=== PATIENT | male | born 1975 | race Caucasian/White ===

== ENCOUNTER 2017-03-25 09:26 | Inpatient (IN) | payer MEDICAID, SELFPAY ==
[2017-03-25] VITALS (11 sets, daily range): BP systolic 130–164; BP diastolic 83–108; PULSE 69–99; RESP 13–24; TEMP 36.7–37.1; O2SAT 94–98; BMI 25.2; BMI 24.1
[2017-03-25 09:51] LABS: Hematocrit 46.2 % (40-54); Hemoglobin 16.3 g/dl (13.0-16.5); Mean Corp Hgb Conc 35.3 g/gl (32-36); Mean Corpuscular Volume 90.8 fL (80-94); Mean Platelet Vol. 10.5 fl (6.2-12.0); Platelet Count 190 K/mm3 (150-450); RBC Distribution Width CV 13.2 % (11.6-14.6); RBC Distribution Width SD 43.5 fl (35.1-43.9); Red Blood Count 5.09 M/mm3 (4.6-6.2); White Blood Count 7.3 K/mm3 (4.4-11.0)
[2017-03-25 09:53] LABS: Scan Indicated on CBC? Y/N NO
[2017-03-25 09:59] LABS: International Normalized Ratio 1.1; Prothrombin Time (Protime)PT. 13.3 SECONDS (11.7-14.9)
[2017-03-25 10:06] LABS: ALB/GLOB Ratio 1.1 RATIO (0.9-2.4); AST(SGOT) 41 U/L (15-37); Alanine Aminotransfer ALT/SGPT 56 U/L (16-61); Albumin, Serum 4.7 g/dL (3.2-5.0); Alkaline Phosphatase 90 U/L (45-117); Anion Gap 9 (5-15); BUN 11 mg/dL (7-18); BUN/Creat Ratio 13.9 RATIO (10-20); Calcium,Total 9.3 mg/dL (8.5-10.1); Chloride 100 mmol/L (98-107); Creatinine, Serum 0.79 mg/dL (0.70-1.30); EST Glomerular Filtration Rate 115 mL/min (>60); Est Glom Filt Rate - Afr Amer 139 mL/min (>60); Estimated Creatinine Clearance 115.05 ml/min; Globulin 4.2 g/dL (2.2-4.2); Glucose 80 mg/dL (70-110); Potassium 3.9 mmol/L (3.5-5.1); Protein, Total 8.9 g/dL (6.4-8.2); Sodium Level 136 mmol/L (136-145)
--- NOTE | 2017-03-25 11:38 | ED.RN ---
HOSPITALIST PAGED FOR DR VINES
--- NOTE | 2017-03-25 11:43 | ED.VISSUMM ---
- ER Visit Summary Date of Service: 03/25/17 Chief Complaint: Triage document suicidal ideation patient states alcoholism History of Present Illness: The patient is a 41 M has been drinking since 2005. Prior to 2005 he had a drug problem. He relocated to [place] has not used drugs since. Patient states he drinks a minimum 12 beers a day. He on occasion to consume greater than the case. He denies headache, ocular, visual auditory symptoms. He denies cardiac respiratory symptoms. He denies abdominal pain. He does report nausea without vomiting diarrhea. He denies dysuria, frequency, urgency or hematuria. He denies bruising easily even though there is multiple bruises on his lower extremity. He states he has difficulty keeping a job because of his alcohol problem. This morning he had thoughts of suicide but does not have a plan. He states he needs help. Physical Examination: Patient is a pleasant middle-age male. Head is atraumatic normocephalic. Pupils are equal round reactive. Extraocular muscles are intact. TMs are pearly white with landmarks noted. Nares patent with no drainage. Posterior pharynx without erythema or exudate. Uvula is midline. There is no dysphonia or dysphasia. Trachea is midline. There is no stridor with auscultation of the neck. Heart is regular without murmur, gallop or rub. S1 and S2 are normal. Lungs are clear to auscultation with good movement of air bilaterally. Abdomen is soft nontender. Patient is alert and oriented ?3. Motor is 5 over 5. Sensory is intact. DTRs are symmetric with no clonus or Babinski sign. Cranial 2 through 12 are intact. Cerebellar testing is normal. DTRs are 3+. He does have tremor. Test Results: BC, BMP and INR were obtained and are normal. ALT is slightly elevated. Alcohol is 73. Emergency Department Course and Treatment: Screening labs were obtained and concern for coagulopathy since he has multiple bruises. Spoke with Lina from [facility] [employer] who saw patient and states he qualifies for admission. Case was discussed Dr. Aiden Gonzales who will admit patient. Treatment Plan: Inpatient detox Disposition: Admission as [facility] patient Impression: Alcohol withdrawal This note was generated with [employer] dictation software. It may contain incorrect words, spelling, and punctuation that were not noted in review of the chart prior to signing ED Disposition - Plan for ED Patient: Chief Complaint: Suicidal Referrals: Care Physician,No Primary [Primary Care Provider] -
--- NOTE | 2017-03-25 11:45 | PCM.HP.STD ---
Problem List (1) Alcohol abuse Status: Acute (2) HTN (hypertension) Status: Acute (3) Asthma Status: Chronic (4) COPD (chronic obstructive pulmonary disease) Status: Chronic (5) Tobacco abuse Status: Chronic (6) Pneumonia Status: Suspected History of Present Illness Date of Admission: 03/25/17 Chief Complaint: Acute alcohol intoxication The patient is a 41 year old M with past medical history significant for heavy alcohol use in the past brought to the ED by the police. Patient was apparently sent from the counseling center. He had presented apparently to get help with detoxing. Patient assessment in the ED was consistent with acute alcohol intoxication. Patient was admitted to the regular nursing floor to be management and [facility] medical stabilization protocol Past Medical History Past Medical History (Chronic Problems): Chronic Problems Tobacco abuse (Chronic) COPD (chronic obstructive pulmonary disease) (Chronic) Asthma (Chronic) Allergies No Known Allergies Allergy (Verified 03/25/17 09:27) Home Medications: Ambulatory Orders Medication Instructions Recorded Albuterol Inhaler [Ventolin Hfa] 1 - 2 puff INHALATION Q4H PRN PRN 03/02/17 #1 inhaler Albuterol Aerosols [Ventolin 2.5 mg INHALATION Q4H PRN PRN 03/25/17 Aerosols] Surgical History: no surgical history Psychiatric History: No pertinent psych hx Smoking Status: Current every day smoker - *Family History Maternal History Items: No pertinent history Paternal History Items: Heart Disease - Father with fatal OH at 61 y/o., Hypertension Review of Systems Constitutional: Denies: Anorexia, Chills, Fever, Night Sweats, Weight Change HEENT: Denies: Head Aches, Sinus Congestion, Sinus Drainage Cardiovascular: Reports: Palpitations. Denies: Chest Pain, Orthopnea, Paroxysmal Noc. Dyspnea Respiratory: Reports: Cough Gastrointestinal: Denies: Abdominal Pain, Hematemesis, Hematochezia, Nausea, Melena, Vomiting Genitourinary: Denies: Dysuria, Frequency, Hematuria, Urgency Musculoskeletal: Denies: Joint Pain, Joint Tenderness Neurological: Reports: Tremor Psychiatric: Reports: Depression VTE Information - Inpt Only VTE Present on Admission: No VTE Pharm Prophylaxis ordered?: No Reason prophylaxis not ordered:: Treatment Not Indicated Patient Problems: Active and Suspected Problems Alcohol abuse (Acute) Objective: GENERAL: cooperative HEENT: Clear conjunctiva, NECK; supple, normal thyroid, CHEST: Diminished to auscultation bilaterally, HEART: Regular S1 S2, no audible murmurs ABDOMEN: soft, non-tender, normoactive bowel sounds, RECTAL: deferred EXTREMITIES: No edema, no clubbing, no cyanosis. CERTIFIED MEDICAL AIDE: Awake, no lateralizing signs. SKIN: No Rash - Physical Exam Vital Signs Temp Pulse Resp BP Pulse Ox 98.8 F 93 16 139/102 H 95 03/25/17 09:27 03/25/17 11:18 03/25/17 11:18 03/25/17 11:18 03/25/17 11:18 Oxygen Delivery Method Room Air Weight: 73.028 kg Body Mass Index (BMI) 25.2 Laboratory Tests Past 24 Hrs 03/25/17 03/25/17 03/25/17 09:40 09:40 09:40 WBC 7.3 RBC 5.09 Hgb 16.3 Hct 46.2 MCV 90.8 MCH 32.0 MCHC 35.3 RDW 13.2 RDW Differential 43.5 Plt Count 190 MPV 10.5 PT 13.3 INR 1.1 Sodium 136 Potassium 3.9 Chloride 100 Carbon Dioxide 27.0 Anion Gap 9 BUN 11 Creatinine 0.79 Estim Creat Clear Calc 115.05 Est GFR (MDRD) Af Amer 139 Est GFR (MDRD) Non-Af 115 BUN/Creatinine Ratio 13.9 Glucose 80 Calcium 9.3 Total Bilirubin 0.70 AST 41 H ALT 56 Alkaline Phosphatase 90 Total Protein 8.9 H Albumin 4.7 Globulin 4.2 Albumin/Globulin Ratio 1.1 Ethyl Alcohol 03/25/17 09:40 WBC RBC Hgb Hct MCV MCH MCHC RDW RDW Differential Plt Count MPV PT INR Sodium Potassium Chloride Carbon Dioxide Anion Gap BUN Creatinine Estim Creat Clear Calc Est GFR (MDRD) Af Amer Est GFR (MDRD) Non-Af BUN/Creatinine Ratio Glucose Calcium Total Bilirubin AST ALT Alkaline Phosphatase Total Protein Albumin Globulin Albumin/Globulin Ratio Ethyl Alcohol 73.0 Assessment/Plan Active and Suspected Problems Alcohol abuse (Acute) Patient is a 41-year-old gentleman with previous history of heavy alcohol use admitted with acute alcohol withdrawal 1. Acute alcohol withdrawal patient has been admitted to regular nursing floor for medical stabilization using lorazepam. Patient was also counseled on cessation 2. Depression plan is for patient to be referred to the counseling center once his medical stabilization is complete 3. Tobacco dependence counseled on cessation, offered nicotine patch for tobacco cravings 4. COPD: Patient is on aerosol treatment did continue 5. DVT prophylaxis low risk did early encourage Code Visit Inpatient E&M: 58362 Subs Hosp L3
--- NOTE | 2017-03-25 11:46 | ED.DCSUM_ITS ---
- ER Visit Summary Date of Service: 03/25/17 Chief Complaint: Triage document suicidal ideation patient states alcoholism History of Present Illness: The patient is a 41 M has been drinking since 2005. Prior to 2005 he had a drug problem. He relocated to [place] has not used drugs since. Patient states he drinks a minimum 12 beers a day. He on occasion to consume greater than the case. He denies headache, ocular, visual auditory symptoms. He denies cardiac respiratory symptoms. He denies abdominal pain. He does report nausea without vomiting diarrhea. He denies dysuria, frequency, urgency or hematuria. He denies bruising easily even though there is multiple bruises on his lower extremity. He states he has difficulty keeping a job because of his alcohol problem. This morning he had thoughts of suicide but does not have a plan. He states he needs help. Physical Examination: Patient is a pleasant middle-age male. Head is atraumatic normocephalic. Pupils are equal round reactive. Extraocular muscles are intact. TMs are pearly white with landmarks noted. Nares patent with no drainage. Posterior pharynx without erythema or exudate. Uvula is midline. There is no dysphonia or dysphasia. Trachea is midline. There is no stridor with auscultation of the neck. Heart is regular without murmur, gallop or rub. S1 and S2 are normal. Lungs are clear to auscultation with good movement of air bilaterally. Abdomen is soft nontender. Patient is alert and oriented ?3. Motor is 5 over 5. Sensory is intact. DTRs are symmetric with no clonus or Babinski sign. Cranial 2 through 12 are intact. Cerebellar testing is normal. DTRs are 3+. He does have tremor. Test Results: BC, BMP and INR were obtained and are normal. ALT is slightly elevated. Alcohol is 73. Emergency Department Course and Treatment: Screening labs were obtained and concern for coagulopathy since he has multiple bruises. Spoke with Lina from [facility] [employer] who saw patient and states he qualifies for admission. Case was discussed Dr. Aiden Gonzales who will admit patient. Treatment Plan: Inpatient detox Disposition: Admission as [facility] patient Impression: Alcohol withdrawal This note was generated with [employer] dictation software. It may contain incorrect words, spelling, and punctuation that were not noted in review of the chart prior to signing ED Disposition - Plan for ED Patient: Chief Complaint: Suicidal Referrals: Care Physician,No Primary [Primary Care Provider] -
[2017-03-25 12:51] LABS: Amylase 70 U/L (25-115); Lipase 269 U/L (73-393)
[2017-03-25] MEDS: Lactated Ringers 1,000 ML 125 ML IV (13:10)
[2017-03-25] MEDS: QUEtiapine 25 MG Tablet PO (13:16)
[2017-03-25] MEDS: cloNIDine HCl 0.1 MG Tablet PO ×3 (13:16→22:33)
[2017-03-25] MEDS: LORazepam 1 MG Tablet PO ×3 (13:16→22:33)
[2017-03-25 16:21] LABS: Amphetamine Urine VISTA NEGATIVE (<1000 ng/mL); Barbiturate Urine VISTA NEGATIVE (< 200 ng/mL); Benzodiazepine Urine VISTA NEGATIVE (< 200 ng/mL); Cocaine Urine VISTA NEGATIVE (< 300 ng/mL); Ecstacy Urine VISTA NEGATIVE (< 500 ng/mL); Methadone Urine VISTA NEGATIVE (< 300 ng/mL); PCP Urine VISTA NEGATIVE (< 25 ng/mL); THC Urine VISTA POSITIVE (< 50 ng/mL); Vista UDS pH Range 7
[2017-03-25] MEDS: Dicyclomine 10 MG Capsule 20 MG PO (16:57)
[2017-03-25] MEDS: Loperamide 2 MG Capsule PO (20:06)
[2017-03-25] MEDS: traZODone 50 MG Tablet PO (22:33)
[2017-03-25] MEDS: 0.9% NaCl Peripheral Flush Adult/Peds IV (22:34)
[2017-03-25] MEDS: Ibuprofen 600 MG Tablet PO (22:41)
[2017-03-25] MEDS: Pramipexole Di-HCl 0.25 MG Tablet PO (22:42)
[2017-03-26 01:46] VITALS: BP 129/84; PULSE 60; RESP 18; TEMP 36.4
[2017-03-26] MEDS: LORazepam 1 MG Tablet PO ×4 (01:52→21:37)
[2017-03-26] MEDS: cloNIDine HCl 0.1 MG Tablet PO ×5 (01:52→21:37)
[2017-03-26] MEDS: Methocarbamol 750 MG Tablet PO (01:56)
[2017-03-26] MEDS: QUEtiapine 25 MG Tablet PO ×2 (01:56→19:45)
[2017-03-26] MEDS: Ondansetron ODT 4 MG Tablet PO ×2 (01:57→17:13)
[2017-03-26 05:39] VITALS: BP 122/79; PULSE 66; RESP 18; TEMP 36.6
[2017-03-26] MEDS: Dicyclomine 10 MG Capsule 20 MG PO ×2 (05:45→19:45)
--- NOTE | 2017-03-26 08:25 | PN_ITS ---
Patient Problems: Active and Suspected Problems Alcohol abuse (Acute) Subjective: Patient is a 41-year-old gentleman with previous history of heavy alcohol use admitted with acute alcohol withdrawal admitted to a regular nursing floor treatment initiated with lorazepam as needed 03/26/17 patient apparently did complain of significant anxiety as well as being tremulous throughout the night. Objective: GENERAL: cooperative HEENT: Clear conjunctiva, NECK; supple, normal thyroid, CHEST: Diminished to auscultation bilaterally, HEART: Regular S1 S2, no audible murmurs ABDOMEN: soft, non-tender, normoactive bowel sounds, RECTAL: deferred EXTREMITIES: No edema, no clubbing, no cyanosis. RN PERIOPERATIVE: Awake, no lateralizing signs. SKIN: No Rash Vitals/I&O's: Vital Signs Temp Pulse Resp BP Pulse Ox 98 F 66 18 122/79 H 98 03/26/17 05:39 03/26/17 05:39 03/26/17 05:39 03/26/17 05:39 03/25/17 23:00 Oxygen Delivery Method Room Air Weight: 69.9 kg Body Mass Index (BMI) 24.1 Intake and Output for Last 24 Hours 03/24/17 03/25/17 03/26/17 23:59 23:59 23:59 Intake Total 668 / 668 1660 / 1660 Balance 668 / 668 1660 / 1660 Current Medications Acetaminophen (Tylenol) 500 mg PO Q4H PRN PRN PRN Reason: Temp > 100.4 F Al Hydroxide/Mg Hydroxide (Mylanta Ii) 30 ml PO Q6H PRN PRN PRN Reason: dyspesia Albuterol/Ipratropium (Duoneb) 3 ml INHALATION Q4H.RT PRN PRN Reason: WHEEZING Bisacodyl (Dulcolax) 10 mg RECTAL DAILY PRN PRN Reason: Constipation Clonidine (Catapres) 0.1 mg PO Q4 ARLYN Last Admin: 03/26/17 05:41 Dose: 0.1 mg Dicyclomine HCl (Bentyl) 20 mg PO Q6H PRN PRN PRN Reason: abdominal discomfort Last Admin: 03/26/17 05:45 Dose: 20 mg Folic Acid (Folic Acid) 1 mg PO DAILY@0800 [facility] Hydroxyzine Pamoate (Vistaril) 50 mg PO Q6H PRN PRN PRN Reason: Mild Anxiety (score 1/3) Last Admin: 03/26/17 05:47 Dose: 50 mg Thiamine HCl 200 mg/ Sodium (Chloride) 52 mls @ 200 mls/hr IV DAILY ARLYN Ibuprofen (Motrin) 600 mg PO Q8H PRN PRN PRN Reason: Mild-Moderate Pain (1-5/10) Last Admin: 03/25/17 22:41 Dose: 600 mg Loperamide HCl (Imodium) 2 - 4 mg PO UD PRN PRN Reason: LOOSE STOOLS Last Admin: 03/25/17 20:06 Dose: 4 mg Lorazepam (Ativan) 1 mg PO Q4H ARLYN PRN Reason: Taper Stop: 03/28/17 17:59 Last Admin: 03/26/17 05:41 Dose: 1 mg Magnesium Hydroxide (Milk Of Magnesia) 30 ml PO DAILY PRN PRN PRN Reason: Constipation Methocarbamol (Methocarbamol) 750 mg PO Q6H PRN PRN PRN Reason: Muscle Aches Last Admin: 03/26/17 01:56 Dose: 750 mg Multivitamins/Minerals (Multivitamin With Minerals) 1 tablet PO DAILYCM [facility] Nicotine (Nicoderm Cq (Pbkc)) 21 mg TRANSDERM. DAILY [facility] Last Admin: 03/25/17 13:11 Dose: 21 mg Ondansetron HCl (Zofran Odt) 4 mg PO Q6H PRN PRN PRN Reason: NAUSEA Last Admin: 03/26/17 01:57 Dose: 4 mg Pramipexole Dihydrochloride (Mirapex) 0.25 mg PO Q12H PRN PRN PRN Reason: Restless legs Last Admin: 03/25/17 22:42 Dose: 0.25 mg Quetiapine Fumarate (Seroquel) 25 mg PO Q6H PRN PRN PRN Reason: Moderate Anxiety (score 2/3) Last Admin: 03/26/17 01:56 Dose: 25 mg Senna (Senokot) 1 tablet PO QHS PRN PRN Reason: Constipation Sodium Chloride () 5 - 30 ml IV UD PRN PRN Reason: SALINE FLUSH Last Admin: 03/25/17 22:34 Dose: 10 ml Trazodone HCl (Desyrel) 50 mg PO QHS ARLYN Last Admin: 03/25/17 22:33 Dose: 50 mg Assessment/Plan Active and Suspected Problems Alcohol abuse (Acute) Patient is a 41-year-old gentleman with previous history of heavy alcohol use admitted with acute alcohol withdrawal 1. Acute alcohol withdrawal patient has been admitted to regular nursing floor for medical stabilization using lorazepam. Patient was also counseled on cessation 2. Depression plan is for patient to be referred to the counseling center once his medical stabilization is complete 3. Tobacco dependence counseled on cessation, offered nicotine patch for tobacco cravings 4. COPD: Patient is on aerosol treatment did continue 5. DVT prophylaxis low risk did early encourage Code Visit Inpatient E&M: 50661 Subs Hosp L3
[2017-03-26] MEDS: Multivitamins,Ther W-Minerals Tablet 1 TABLET PO (09:46)
[2017-03-26] MEDS: Folic Acid 1 MG Tablet PO (09:47)
[2017-03-26 09:50] VITALS: BP 109/58; PULSE 74; RESP 16; TEMP 36.6; O2SAT 98
[2017-03-26] MEDS: 0.9% NaCl Peripheral Flush Adult/Peds IV (09:54)
[2017-03-26 15:20] VITALS: BP 125/79; PULSE 64; RESP 18; TEMP 36.8
[2017-03-26] MEDS: Ibuprofen 600 MG Tablet PO (17:13)
--- NOTE | 2017-03-26 18:25 | CHAPLAIN ---
Type of Pastoral Visit _x__ Initial Visit ___ Follow-up Visit ___ On-call Visit ___ General Patient Visit ___ Spiritual Assessment ___ Family Conference ___ Bereavement ___ Rapid Response ___ Code Blue ___ Other (describe below) Pastoral Care Referral From _x__ Patient ___ Family ___ Nurse ___ Physician ___ Oil Sprayer ___ Personal Driver ___ Other (describe below) Sacrament/Intervention _x__ Active listening ___ Anointing ___ Anabaptist ___ Bereavement ___ Communion _x__ Tess exploration ___ _x__ Life review _x__ Prayer ___ Reconciliation ___ Sacrament of Sick _x__ Supportive presence ___ Wedding ___ Other (describe below) Pastoral Comments
[2017-03-26 19:37] VITALS: BP 118/75; PULSE 66; RESP 16; TEMP 36.1; O2SAT 97
[2017-03-26] MEDS: traZODone 50 MG Tablet PO (21:37)
[2017-03-27 02:29] VITALS: BP 120/79; PULSE 61; RESP 14; TEMP 36
[2017-03-27] MEDS: Ibuprofen 600 MG Tablet PO (02:33)
[2017-03-27] MEDS: Dicyclomine 10 MG Capsule 20 MG PO (02:33)
[2017-03-27] MEDS: LORazepam 1 MG Tablet PO ×2 (04:55→09:17)
[2017-03-27 06:19] VITALS: BP 128/83; PULSE 71; RESP 14; TEMP 36
[2017-03-27] MEDS: Methocarbamol 750 MG Tablet PO (06:24)
[2017-03-27] MEDS: cloNIDine HCl 0.1 MG Tablet PO ×3 (06:24→13:47)
[2017-03-27] MEDS: Mag Hydrox/Al Hydrox/Simeth 30 ML UDC PO (06:24)
[2017-03-27] MEDS: Ondansetron ODT 4 MG Tablet PO (06:24)
--- NOTE | 2017-03-27 08:17 | PN_ITS ---
Patient Problems: Active and Suspected Problems Alcohol abuse (Acute) Subjective: Seen complains of excessive perspiration Objective: GENERAL: cooperative HEENT: Clear conjunctiva, NECK; supple, normal thyroid, CHEST: Diminished to auscultation bilaterally, HEART: Regular S1 S2, no audible murmurs ABDOMEN: soft, non-tender, normoactive bowel sounds, RECTAL: deferred EXTREMITIES: No edema, no clubbing, no cyanosis. RESEARCH ENVIRONMENTAL SCIENTIST: Awake, no lateralizing signs. SKIN: No Rash Vitals/I&O's: Vital Signs Temp Pulse Resp BP Pulse Ox 96.8 F L 71 14 128/83 H 97 03/27/17 06:19 03/27/17 06:19 03/27/17 06:19 03/27/17 06:19 03/26/17 19:37 Oxygen Delivery Method Room Air Weight: 70 kg Body Mass Index (BMI) 24.1 Intake and Output for Last 24 Hours 03/25/17 03/26/17 03/27/17 23:59 23:59 23:59 Intake Total 668 / 668 2810 / 2810 2420 / 2420 Balance 668 / 668 2810 / 2810 2420 / 2420 Current Medications Acetaminophen (Tylenol) 500 mg PO Q4H PRN PRN PRN Reason: Temp > 100.4 F Al Hydroxide/Mg Hydroxide (Mylanta Ii) 30 ml PO Q6H PRN PRN PRN Reason: dyspesia Last Admin: 03/27/17 06:24 Dose: 30 ml Albuterol/Ipratropium (Duoneb) 3 ml INHALATION Q4H.RT PRN PRN Reason: WHEEZING Bisacodyl (Dulcolax) 10 mg RECTAL DAILY PRN PRN Reason: Constipation Clonidine (Catapres) 0.1 mg PO Q4 ARLYN Last Admin: 03/27/17 06:24 Dose: 0.1 mg Dicyclomine HCl (Bentyl) 20 mg PO Q6H PRN PRN PRN Reason: abdominal discomfort Last Admin: 03/27/17 02:33 Dose: 20 mg Folic Acid (Folic Acid) 1 mg PO DAILY@0800 [facility] Last Admin: 03/26/17 09:47 Dose: 1 mg Hydroxyzine Pamoate (Vistaril) 50 mg PO Q6H PRN PRN PRN Reason: Mild Anxiety (score 1/3) Last Admin: 03/26/17 15:24 Dose: 50 mg Thiamine HCl 200 mg/ Sodium (Chloride) 52 mls @ 200 mls/hr IV DAILY [facility] Last Admin: 03/26/17 09:53 Dose: 200 mls/hr Ibuprofen (Motrin) 600 mg PO Q8H PRN PRN PRN Reason: Mild-Moderate Pain (1-5/10) Last Admin: 03/27/17 02:33 Dose: 600 mg Loperamide HCl (Imodium) 2 - 4 mg PO UD PRN PRN Reason: LOOSE STOOLS Last Admin: 03/25/17 20:06 Dose: 4 mg Lorazepam (Ativan) 1 mg PO Q6H ARLYN PRN Reason: Taper Stop: 03/28/17 17:59 Last Admin: 03/27/17 04:55 Dose: 1 mg Magnesium Hydroxide (Milk Of Magnesia) 30 ml PO DAILY PRN PRN PRN Reason: Constipation Methocarbamol (Methocarbamol) 750 mg PO Q6H PRN PRN PRN Reason: Muscle Aches Last Admin: 03/27/17 06:24 Dose: 750 mg Multivitamins/Minerals ([facility]ivitamin With Minerals) [facility] Last Admin: 03/26/17 09:46 Dose: 1 tablet Nicotine (Nicoderm Cq (Pbkc)) 21 mg TRANSDERM. DAILY [facility] Last Admin: 03/26/17 09:47 Dose: 21 mg Ondansetron HCl (Zofran Odt) 4 mg PO Q6H PRN PRN PRN Reason: NAUSEA Last Admin: 03/27/17 06:24 Dose: 4 mg Pramipexole Dihydrochloride (Mirapex) 0.25 mg PO Q12H PRN PRN PRN Reason: Restless legs Last Admin: 03/25/17 22:42 Dose: 0.25 mg Quetiapine Fumarate (Seroquel) 25 mg PO Q6H PRN PRN PRN Reason: Moderate Anxiety (score 2/3) Last Admin: 03/26/17 19:45 Dose: 25 mg Senna (Senokot) 1 tablet PO QHS PRN PRN Reason: Constipation Sodium Chloride () 5 - 30 ml IV UD PRN PRN Reason: SALINE FLUSH Last Admin: 03/26/17 09:54 Dose: 10 ml Trazodone HCl (Desyrel) 50 mg PO QHS [facility] Last Admin: 03/26/17 21:37 Dose: 50 mg Assessment/Plan Active and Suspected Problems Alcohol abuse (Acute) Patient is a 41-year-old gentleman with previous history of heavy alcohol use admitted with acute alcohol withdrawal 1. Acute alcohol withdrawal patient has been admitted to regular nursing floor for medical stabilization using lorazepam. Patient was also counseled on cessation 2. Depression plan is for patient to be referred to the counseling center once his medical stabilization is complete 3. Tobacco dependence counseled on cessation, offered nicotine patch for tobacco cravings 4. COPD: Patient is on aerosol treatment did continue 5. DVT prophylaxis low risk did early encourage Code Visit Inpatient E&M: 37060 Subs Hosp L2
[2017-03-27 09:13] VITALS: BP 120/80; PULSE 69; RESP 18; TEMP 36.6
[2017-03-27] MEDS: Folic Acid 1 MG Tablet PO (09:17)
[2017-03-27] MEDS: Multivitamins,Ther W-Minerals Tablet 1 TABLET PO (09:17)
[2017-03-27 13:42] VITALS: BP 129/89; PULSE 68; RESP 16; TEMP 36.3
[2017-03-27] MEDS: QUEtiapine 25 MG Tablet PO (13:47)
--- NOTE | 2017-03-27 14:52 | PCM.DC ---
- Discharge Diagnoses Current Active Problems: Current Active and Chronic Problems Alcohol abuse (Acute) You will use the following diet at home:: No restrictions Discharge Activity: May not drive while taking narcotic pain medications. Allergies/Adverse Reactions: Allergies No Known Allergies Allergy (Verified 03/25/17 09:27) Medications to take at Discharge Albuterol Inhaler [Ventolin Hfa] 1 - 2 puff INHALATION Q4H PRN PRN #1 inhaler 03/02/17 Albuterol Aerosols [Ventolin Aerosols] 2.5 mg INHALATION Q4H PRN PRN 03/25/17 Lisinopril 20 mg PO DAILY 03/26/17 Primary Care Physician: Care Physician,No Primary [Primary Care Provider] - Proposed Discharge Date: 03/27/17
--- NOTE | 2017-03-27 14:53 | PCM.DC.SUM ---
Discharge Date and Diagnosis - Problem List Patient Problems: Active and Suspected Problems Alcohol abuse (Acute) Date of Admission: 03/25/17 Date of Discharge: 03/27/17 - Primary Discharge Diagnosis Active and Suspected Problems Alcohol abuse (Acute) - Secondary Discharge Diagnosis Chronic Problems Tobacco abuse (Chronic) COPD (chronic obstructive pulmonary disease) (Chronic) Asthma (Chronic) Hospital Course and Treatment Operations: None Summary of Care Provided: Patient is a 41-year-old gentleman with previous history of heavy alcohol use admitted with acute alcohol withdrawal 1. Acute alcohol withdrawal patient has been admitted to regular nursing floor for medical stabilization using lorazepam. Patient was also counseled on cessation and was discharged 2 days after medical stabilization plan is for patient to continue with his recuperation after an inpatient rehab facility arranged by [facility] 2. Depression plan is for patient to be referred to the counseling center once his medical stabilization is complete 3. Tobacco dependence counseled on cessation, offered nicotine patch for tobacco cravings 4. COPD: Patient is on aerosol treatment did continue 5. DVT prophylaxis low risk did early encourage Discharge Diet: No Restrictions Discharge Activity: May not drive while taking narcotic pain medications. Home Medications: Medications to take at Discharge Albuterol Inhaler [Ventolin Hfa] 1 - 2 puff INHALATION Q4H PRN PRN #1 inhaler 03/02/17 Albuterol Aerosols [Ventolin Aerosols] 2.5 mg INHALATION Q4H PRN PRN 03/25/17 Lisinopril 20 mg PO DAILY 03/26/17 Primary Care Physician: Care Physician,No Primary [Primary Care Provider] - Disposition: Home Minutes spent on discharge:: 35 Patient Condition:: Stable Meaningful Use Info Meaningful Use Diagnoses (Choose all that apply): None applicable Code Visit Inpatient E&M: 14144 Disch Hosp
== END 2017-03-27 14:55 | disposition home or self-care (01) | DRG 434 ==
LOC: ED 10:30 → MS2 12:07
PROVIDERS: Admitting Provider Internal Medicine; Emergency Provider Emergency Medicine; Visit Provider Internal Medicine
DX: F10.239 Alcohol dependence with withdrawal, unspecified (principal); J44.9 Chronic obstructive pulmonary disease, unspecified; F10.229 Alcohol dependence with intoxication, unspecified; Y90.3 Blood alcohol level of 60-79 mg/100 ml; F17.200 Nicotine dependence, unspecified, uncomplicated; F32.9 Major depressive disorder, single episode, unspecified
CPT/HCPCS: 80053; 80307; 80320; 82150; 83690; 85027; 85610; 99285; 99406; J7120; A4216; G0480; J3490

== ENCOUNTER 2017-08-10 22:33 | Emergency (ER) | payer SELFPAY ==
[2017-08-10 22:33] VITALS: BP 136/63; PULSE 95; RESP 20; TEMP 36.8; O2SAT 94; BMI 24.5
--- NOTE | 2017-08-10 22:42 | ED.VISSUMM ---
- ER Visit Summary Date of Service: 08/10/17 Chief Complaint: Cough History of Present Illness: The patient is a 42 M presents to the emergency department cough. Patient is a history of COPD. He normally takes albuterol as needed. Patient does continue to smoke. He states he also works around a lot of dust. He ran out of his albuterol inhaler about 4 or 5 days ago. He states his cough is been worsening without it. He denies any fevers or chills. He has had scant sputum that has not changed. He denies any chest pain or hemoptysis. He denies any recent travel. Physical Examination: Vital signs reviewed General: Well-nourished, well-developed Head: Normocephalic, atraumatic Eyes: Pupils equal and reactive, extraocular muscles intact Neck, supple, no lymphadenopathy Heart: Regular rate and rhythm Respiratory: No distress, scant wheeze throughout Abdomen: Soft, nontender, nondistended, no peritoneal signs Back: Nontender Extremities: Nontender, no edema, no cords Skin: Normal color no rash Neuro: Alert and oriented, no focal or lateralizing deficits Test Results: [] Emergency Department Course and Treatment: Patient presents with bronchospasm. He has no hypoxia. He has no tachypnea. He was given nebulized breathing treatments improvement of his aeration. He is given prednisone. He will be continued on this. I am going to refill his albuterol inhaler. At this time, due to the patient is safe for outpatient therapy. He is comfortable with this plan of care and will be discharged home. Treatment Plan: [] Disposition: Discharge Impression:. COPD exacerbation This note was generated with [employer] dictation software. It may contain incorrect words, spelling, and punctuation that were not noted in review of the chart prior to signing ED Disposition - Plan for ED Patient: Chief Complaint: Shortness of Breath Instructions: ED COPD Flare Prescriptions: Albuterol Aerosols [Ventolin Aerosols] 2.5 mg INHALATION Q4H PRN #25 vial Albuterol Inhaler [Ventolin Hfa] 1 - 2 puff INHALATION Q4H PRN PRN #1 inhaler PRN Reason: Wheezing Prednisone 10 mg PO UD #33 tab Referrals: Care Physician,No Primary [Primary Care Provider] -
[2017-08-10] MEDS: predniSONE 20 MG Tablet 60 MG PO (22:43)
[2017-08-10] MEDS: Ipratropium/Albuterol Sulfate 3 ML AMPUL.NEB INHALATION (23:02)
[2017-08-10] MEDS: Albuterol 2.5 MG/3 ML VIAL.NEB. INHALATION (23:02)
[2017-08-10 23:03] VITALS: PULSE 82; RESP 20
[2017-08-10 23:25] VITALS: PULSE 97; O2SAT 94
== END 2017-08-10 23:27 | disposition home or self-care (01) ==
LOC: ED 22:59
PROVIDERS: Emergency Provider Emergency Medicine
DX: J44.1 Chronic obstructive pulmonary disease with (acute) exacerbation (principal); Z72.0 Tobacco use
CPT/HCPCS: 94640; 99283

== ENCOUNTER 2018-01-07 14:49 | Emergency (ER) | payer OTHER, SELFPAY ==
[2018-01-07 14:50] VITALS: BP 136/74; PULSE 99; RESP 14; TEMP 37.1; O2SAT 98; BMI 23.1
--- NOTE | 2018-01-07 15:10 | EKG12_ITS ---
Test Reason : Blood Pressure : / mmHG Vent. Rate : 082 BPM Atrial Rate : 082 BPM P-R Int : 142 ms QRS Dur : 094 ms QT Int : 380 ms P-R-T Axes : 058 066 068 degrees QTc Int : 443 ms Normal sinus rhythm Normal ECG Confirmed by REYES FALL, SUE ([id number]), metropolitan editor VAN [place]ENTON ([id number] on 01/10/2018 2:48:44 PM Referred By: SACHI Confirmed By:SUE CHAMBERS MD
[2018-01-07 15:22] VITALS: PULSE 83; RESP 18; O2SAT 96
[2018-01-07 15:40] LABS: Absolute Lymphocyte Count 1.72 X10^3/ul (0.83-4.51); Absolute Neutrophil Count 4.3 X10^3/uL (2.0-7.7); Basophil# 0.02 X10^3/uL; Basophil% 0.3 % (0-1); Eosinophil# 0.15 X10^3/uL; Eosinophils% 2.1 % (0-5); Hematocrit 44.2 % (40-54); Hemoglobin 15.5 g/dl (13.0-16.5); Lymphocyte # 1.72 X10^3/ul (4.0); Lymphocyte % 24.5 % (19-41); Mean Corp Hgb Conc 35.1 g/gl (32-36); Mean Corpuscular Hgb 31.1 pg (27.0-32.0); Mean Corpuscular Volume 88.6 fL (80-94); Mean Platelet Vol. 10.7 fl (6.2-12.0); Monocyte# 0.82 X10^3/uL; Monocyte% 11.7 % (0-10); Neutrophil # 4.28 X10^3/uL (2.7-7.7); Neutrophil % 61.1 % (47-70); Platelet Count 157 K/mm3 (150-450); RBC Distribution Width CV 13.1 % (11.6-14.6); RBC Distribution Width SD 42.4 fl (35.1-43.9); Red Blood Count 4.99 M/mm3 (4.6-6.2)
--- NOTE | 2018-01-07 15:40 | ED.DCSUM_ITS ---
- ER Visit Summary Date of Service: 01/07/18 Chief Complaint: Cough and shortness of breath History of Present Illness: The patient is a 42 M 3 of asthma and COPD. No cardiac history. States he is had a cough and been short of breath for several days up to a week. Clear to white phlegm. No hemoptysis. No chest pain. No history of DVT or PE. No leg pain or swelling. No travel or recent hospitalization or surgery. Patient typically is on an inhaler and nebulizer medication and at times gets prednisone currently he is out of all his medications. He does have an appointment to see an area local primary care physician by the end of this week. He denies any fever. Physical Examination: Vital signs are stable afebrile. Initial blood pressure 136/74. H EENT exam unremarkable. Neck nontender no JVD. Lungs coarse breath sounds. Dry cough. Expiratory wheezing throughout. No distress. Heart regular rate and rhythm no murmur. Abdomen soft and nontender. Normal bowel sounds. No peritoneal signs. He is moving all 4 extremities. Calves are nontender without edema nor cords. Neurologically is awake and alert without focal motor deficits. Test Results: CBC normal. Chemistries normal. Troponin normal. EKG sinus rhythm rate 82 no acute abnormality. Chest x-ray AP and lateral 2 view shows no acute abnormality. Normal cardiac silhouette mediastinum. Normal lung carey. Read both by myself and radiologist. Emergency Department Course and Treatment: Patient treated with an albuterol and Atrovent aerosols. P.o. prednisone. Repeat exam the patient is doing well at 1656. Will be discharged to home. Treatment Plan: I will write him for his albuterol for his nebulizer. An inhaler. And give him 7 days of prednisone 40 mg daily. No taper. Disposition: Discharge Impression: Acute viral bronchitis Acute exacerbation of asthma and COPD This note was generated with [employer] dictation software. It may contain incorrect words, spelling, and punctuation that were not noted in review of the chart prior to signing ED Disposition - Plan for ED Patient: Disposition: Home or Assisted Living Chief Complaint: Shortness of Breath Instructions: ED Bronchitis Asthmatic, ED COPD Flare Prescriptions: Albuterol Aerosols [Ventolin Aerosols] 2.5 mg INHALATION Q4H PRN #25 vial Albuterol Inhaler [Ventolin Hfa] 1 - 2 puff INHALATION Q4H PRN PRN #1 inhaler PRN Reason: Wheezing Prednisone [Deltasone] 40 mg PO DAILY 7 Days tab Referrals: Care Physician,No Primary [Primary Care Provider] - Additional Instructions: Inhaler 1-2 puffs every 2-4 hours as needed. Use aerosol machine as needed. Prednisone 40 mg a day for the next 7 days. No taper. Follow-up your primary care physician. Stop smoking !!
[2018-01-07 15:41] LABS: POSITIVE COUNT NO; POSITIVE DIFFERENTIAL NO; POSITIVE MORPHOLOGY NO
[2018-01-07 15:45] VITALS: PULSE 98; RESP 20
[2018-01-07] MEDS: Albuterol 2.5 MG/3 ML VIAL.NEB. INHALATION (15:45)
[2018-01-07] MEDS: Ipratropium/Albuterol Sulfate 3 ML AMPUL.NEB INHALATION (15:45)
--- NOTE | 2018-01-07 15:45 | DCINST.ED_ITS ---
ED Disposition - Plan for ED Patient: Disposition: Home or Assisted Living Chief Complaint: Shortness of Breath Instructions: ED Bronchitis Asthmatic, ED COPD Flare Prescriptions: Albuterol Aerosols [Ventolin Aerosols] 2.5 mg INHALATION Q4H PRN #25 vial Albuterol Inhaler [Ventolin Hfa] 1 - 2 puff INHALATION Q4H PRN PRN #1 inhaler PRN Reason: Wheezing Prednisone [Deltasone] 40 mg PO DAILY 7 Days tab Referrals: Care Physician,No Primary [Primary Care Provider] - Additional Instructions: Inhaler 1-2 puffs every 2-4 hours as needed. Use aerosol machine as needed. Prednisone 40 mg a day for the next 7 days. No taper. Follow-up your primary care physician. Stop smoking !!
[2018-01-07] MEDS: predniSONE 20 MG Tablet 60 MG PO (15:49)
[2018-01-07 15:59] LABS: Anion Gap 7 (5-15); BUN 9 mg/dL (7-18); BUN/Creat Ratio 11.5 RATIO (10-20); Calcium,Total 9.1 mg/dL (8.5-10.1); Chloride 103 mmol/L (98-107); Creatinine, Serum 0.78 mg/dL (0.70-1.30); EST Glomerular Filtration Rate 115 mL/min (>60); Est Glom Filt Rate - Afr Amer 140 mL/min (>60); Estimated Creatinine Clearance 127.39 ml/min; Glucose 89 mg/dL (74-106); Sodium Level 138 mmol/L (136-145)
--- NOTE | 2018-01-07 16:10 | RAD_ITS ---
STUDY: X-RAY CHEST REASON FOR EXAM: Male, 42 years old. Chest pain TECHNIQUE: Frontal and lateral views of the chest COMPARISON: 03/02/2017 FINDINGS: The lungs are clear. There are no pleural effusions. There is no pneumothorax. The heart is normal in size. The visualized osseous structures are within normal limits. RAD/Chest PA and Lateral IMPRESSION: No acute thoracic pathology. Electronically Signed: Kee Albarran, at 16:35 EST Tel , Service support ,
[2018-01-07 17:13] VITALS: BP 145/86; PULSE 79; RESP 16; O2SAT 98
== END 2018-01-07 17:18 | disposition home or self-care (01) ==
PROVIDERS: Emergency Provider Emergency Medicine
DX: J44.0 Chronic obstructive pulmonary disease with (acute) lower respiratory infection (principal); J44.1 Chronic obstructive pulmonary disease with (acute) exacerbation; J20.9 Acute bronchitis, unspecified; J45.901 Unspecified asthma with (acute) exacerbation; Z72.0 Tobacco use
CPT/HCPCS: 71046; 80048; 84484; 85025; 93005; 94640; 99285; A4216

== ENCOUNTER → 2018-11-27 11:49 | Outpatient (CLI) | payer OTHER, SELFPAY ==
[2018-04-03 12:01] VITALS: BMI 24.9
[2018-11-27 14:05] LABS: Absolute Lymphocyte Count 1.69 X10^3/uL (0.83-4.51); Absolute Neutrophil Count 5.7 X10^3/uL (2.0-7.7); Basophil# 0.05 X10^3/uL; Basophil% 0.6 % (0-1); Eosinophil# 0.19 X10^3/uL; Eosinophils% 2.2 % (0-5); Hematocrit 43.2 % (40-54); Hemoglobin 14.6 g/dL (13.0-16.5); Lymphocyte # 1.69 X10^3/ul (4.0); Lymphocyte % 19.9 % (19-41); Mean Corp Hgb Conc 33.8 g/dL (32-36); Mean Corpuscular Hgb 30.8 pg (27.0-32.0); Mean Corpuscular Volume 91.1 fL (80-94); Mean Platelet Vol. 11.3 fl (6.2-12.0); Monocyte# 0.86 X10^3/uL; Monocyte% 10.1 % (0-10); NRBC Flagged by Analyzer 0 % (0-5); Neutrophil # 5.66 X10^3/uL (2.7-7.7); Neutrophil % 66.7 % (47-70); Platelet Count 197 K/mm3 (150-450); RBC Distribution Width CV 12.7 % (11.6-14.6); RBC Distribution Width SD 42.1 fl (35.1-43.9); Red Blood Count 4.74 M/mm3 (4.6-6.2); White Blood Count 8.5 K/mm3 (4.4-11.0)
[2018-11-27 14:18] LABS: PSA,Total - Annual Screen 1.48 ng/mL (0.00-4.00)
== END ==
PROVIDERS: Family Provider Family Medicine; PCP Family Medicine; Referring Provider Family Medicine; Visit Provider Family Medicine
DX: Z72.0 Tobacco use (principal); Z80.42 Family history of malignant neoplasm of prostate
CPT/HCPCS: 36415; 84153; 85025; G0103

== ENCOUNTER → 2020-03-14 15:41 | Outpatient (CLI) | payer OTHER, SELFPAY ==
[2019-03-23 13:46] VITALS: BMI 24.9
== END ==
PROVIDERS: PCP Family Medicine; Referring Provider Family Medicine; Visit Provider Family Medicine
DX: B34.9 Viral infection, unspecified (principal)
CPT/HCPCS: 87635; U0003